=== PATIENT | male | born 1945 | race Caucasian/White ===

== ENCOUNTER → 2016-08-26 | Outpatient (CLI) | payer BC ==
--- NOTE | 2016-08-26 16:01 | RAD ---
Chest radiograph 08/26/2016 at 0523 hours Indication: Chronic right, for 2 months Comparison: None available Technique: PA and lateral views of the chest are provided. Findings: Cardiomediastinal silhouette is within normal limits. No pleural effusions, pulmonary vascular congestion or pneumothorax. The lungs are clear. 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 Impression: No acute cardiopulmonary process.
== END | disposition home or self-care (01) ==
LOC: RAD 15:02
PROVIDERS: ATTEND Family Medicine
DX: R05 Cough (principal); M51.35 Other intervertebral disc degeneration, thoracolumbar region
CPT/HCPCS: 71020